=== PATIENT | female | born 1995 | race African-American/Black ===

== ENCOUNTER 2021-11-21 14:12 | Outpatient (RCR) | payer OTHER, SELFPAY ==
[2021-11-21 15:08] LABS: Beta HCG Quantitative 2.58 mIU/ML
== END 2022-02-19 23:59 | disposition home or self-care (01) ==
LOC: ANHLAB 14:12
PROVIDERS: Visit Provider Obstetrics & Gynecology
DX: N92.6 Irregular menstruation, unspecified (principal)
CPT/HCPCS: 36415; 84702

== ENCOUNTER 2023-01-20 16:45 | Outpatient (CLI) | payer OTHER, SELFPAY | END 2023-01-20 16:46 | disposition home or self-care (01) | LOC: ANHLAB 16:47 | PROVIDERS: Visit Provider Registered Nurse | DX: Z34.90 Encounter for supervision of normal pregnancy, unspecified, unspecified trimester (principal) | CPT/HCPCS: 36415; 84702 ==